=== PATIENT | female | born 1975 | race Caucasian/White ===

== ENCOUNTER 2018-02-21 07:40 | Day surgery (SDC) | payer OTHER ==
[2018-02-21] MEDS: LIDOCAINE 1%/EPI 30 ML INJ INJ
[2018-02-21] MEDS: COCAINE 4% 4 ML TOP
[~2018-02-21 07:40] MED LIST: DESFLURANE 15 MIN; GLYCOPYRROLATE 0.4 MG INJ; NEOSTIGMINE 3 MG/3 ML SYRINGE; ROCURONIUM 50 MG INJ; SUCCINYLCHOLINE CHLORIDE 100 MG/5 ML SYG IV
[2018-02-21] MEDS ORDERED: LIDOCAINE 1%/EPI 30 ML INJ (10:55)
[2018-02-21] MEDS ORDERED: COCAINE 4% 4 ML TOP (10:55)
[2018-02-21] MEDS ORDERED: ONDANSETRON 4 MG INJ IV (11:00)
[2018-02-21] MEDS ORDERED: MEPERIDINE 25 MG INJ IV (11:00)
[2018-02-21] MEDS ORDERED: METOCLOPRAMIDE 10 MG INJ IV (11:00)
[2018-02-21] MEDS ORDERED: HYDROmorphONE 1 MG/5 ML IV SYRINGE IV ×3 (11:00)
[2018-02-21] MEDS ORDERED: DIPHENHYDRAMINE 50 MG INJ IV (11:00)
[2018-02-21] MEDS ORDERED: ALBUTEROL 0.083% (NEB) 2.5 MG/3 ML AMP HHN (11:00)
[2018-02-21] MEDS ORDERED: FENTAnyl 50 MCG/ML VIAL IV ×2 (11:00)
[2018-02-21] MEDS ORDERED: FENTAnyl 50 MCG/ML VIAL (11:22)
[2018-02-21] MEDS ORDERED: MIDAZOLAM 1 MG/ML 2 ML INJ (11:31)
[2018-02-21] MEDS: NEOMYC/POLYMYX/BACIT 30 GM OINT (12:12)
[2018-02-21] MEDS ORDERED: ACETAMINOPHEN 325 MG TAB PO (13:00)
== END 2018-02-21 14:30 | disposition home or self-care (01) ==
LOC: SDS 07:40
DX: J34.2 Deviated nasal septum (principal); J34.3 Hypertrophy of nasal turbinates
CPT/HCPCS: 30130; 84703; 88304